=== PATIENT | male | born 1945 | race Caucasian/White ===

== ENCOUNTER 2020-07-23 11:36 | Inpatient (IN) | payer MEDICARE ==
[~2020-07-23] VITALS: Ht 177.8 cm; Wt 99.3 kg
[~2020-07-23 11:36] MED LIST: MEDROL4 MG PO; TESSALON PERLE100 MG PO; VENTOLIN HFA 66.7 GM INH; VIBRAMYCIN100 MG PO; ZESTRIL10 MG PO; ZOCOR80 MG PO
[2020-07-23 12:53] LABS: HEMOGLOBIN 15.1 gm/dl (14.0-17.5); RED BLOOD COUNT 4.81 M/UL (4.20-5.50); WHITE BLOOD COUNT 7.9 K/UL (4.5-11.0)
[2020-07-23 13:15] LABS: BUN/CREATININE RATIO 19 (0-10)
[2020-07-23] MEDS ORDERED: ASPIRIN EC81 MG PO (15:41)
[2020-07-23] MEDS ORDERED: VITAMIN D325 MCG PO (15:41)
[2020-07-24 06:50] LABS: HEMOGLOBIN 15.3 gm/dl (14.0-17.5); RED BLOOD COUNT 4.87 M/UL (4.20-5.50); WHITE BLOOD COUNT 9.3 K/UL (4.5-11.0)
[2020-07-25 06:01] LABS: HEMOGLOBIN 14.1 gm/dl (14.0-17.5); RED BLOOD COUNT 4.56 M/UL (4.20-5.50)
[2020-07-25 06:31] LABS: BUN/CREATININE RATIO 26 (0-10)
[2020-07-26 06:51] LABS: HEMOGLOBIN 13.1 gm/dl (14.0-17.5); RED BLOOD COUNT 4.21 M/UL (4.20-5.50); WHITE BLOOD COUNT 12.9 K/UL (4.5-11.0)
[2020-07-26 06:59] LABS: BUN/CREATININE RATIO 32 (0-10)
[2020-07-27 04:02] LABS: HEMOGLOBIN 12.9 gm/dl (14.0-17.5); RED BLOOD COUNT 4.18 M/UL (4.20-5.50); WHITE BLOOD COUNT 15.9 K/UL (4.5-11.0)
[2020-07-27 04:30] LABS: BUN/CREATININE RATIO 30 (0-10)
[2020-07-28 04:01] LABS: HEMOGLOBIN 13.4 gm/dl (14.0-17.5); RED BLOOD COUNT 4.3 M/UL (4.20-5.50); WHITE BLOOD COUNT 17.1 K/UL (4.5-11.0)
[2020-07-28 04:25] LABS: BUN/CREATININE RATIO 35 (0-10)
[2020-07-28 17:11] LABS: ORGANISM ID Not indicated. (.); SPECIMEN SOURCE Urine (.); STREPTOCOCCUS PNEUMONIAE AG Negative (Negative)
[2020-07-29 09:16] LABS: HEMOGLOBIN 14.1 gm/dl (14.0-17.5); RED BLOOD COUNT 4.57 M/UL (4.20-5.50); WHITE BLOOD COUNT 17.8 K/UL (4.5-11.0)
[2020-07-29 09:55] LABS: BUN/CREATININE RATIO 36 (0-10)
[2020-07-30 06:53] LABS: HEMOGLOBIN 14.7 gm/dl (14.0-17.5); RED BLOOD COUNT 4.71 M/UL (4.20-5.50)
[2020-07-30 07:14] LABS: BUN/CREATININE RATIO 38 (0-10)
[2020-07-31 05:11] LABS: HEMOGLOBIN 14.4 gm/dl (14.0-17.5); RED BLOOD COUNT 4.67 M/UL (4.20-5.50); WHITE BLOOD COUNT 12.9 K/UL (4.5-11.0)
[2020-07-31 06:00] LABS: BUN/CREATININE RATIO 38 (0-10)
[2020-08-01 05:13] LABS: BUN/CREATININE RATIO 43 (0-10)
[2020-08-02 05:25] LABS: HEMOGLOBIN 15.9 gm/dl (14.0-17.5); RED BLOOD COUNT 5.11 M/UL (4.20-5.50); WHITE BLOOD COUNT 15.3 K/UL (4.5-11.0)
[2020-08-03 02:57] LABS: HEMOGLOBIN 14.3 gm/dl (14.0-17.5); RED BLOOD COUNT 4.6 M/UL (4.20-5.50)
[2020-08-03 02:59] LABS: WHITE BLOOD COUNT 20.8 K/UL (4.5-11.0)
[2020-08-04 05:31] LABS: HEMOGLOBIN 13.3 gm/dl (14.0-17.5); RED BLOOD COUNT 4.41 M/UL (4.20-5.50); WHITE BLOOD COUNT 19.7 K/UL (4.5-11.0)
[2020-08-04 17:50] LABS: HEMOGLOBIN 12.8 gm/dl (14.0-17.5); RED BLOOD COUNT 4.14 M/UL (4.20-5.50); WHITE BLOOD COUNT 16.3 K/UL (4.5-11.0)
[2020-08-04 23:34] LABS: HEMOGLOBIN 12.4 gm/dl (14.0-17.5)
[2020-08-05 05:34] LABS: HEMOGLOBIN 11.8 gm/dl (14.0-17.5); RED BLOOD COUNT 3.88 M/UL (4.20-5.50); WHITE BLOOD COUNT 15.6 K/UL (4.5-11.0)
[2020-08-05 12:29] LABS: HEMOGLOBIN 11.5 gm/dl (14.0-17.5)
[2020-08-05 17:46] LABS: HEMOGLOBIN 11.1 gm/dl (14.0-17.5)
[2020-08-05 23:35] LABS: HEMOGLOBIN 10.6 gm/dl (14.0-17.5)
[2020-08-06 04:44] LABS: HEMOGLOBIN 10.1 gm/dl (14.0-17.5)
[2020-08-06 04:45] LABS: RED BLOOD COUNT 3.32 M/UL (4.20-5.50); WHITE BLOOD COUNT 10.8 K/UL (4.5-11.0)
--- NOTE | 2020-08-06 19:09 | NUR ---
PT WITH MULTIPLE EPISODES OF LOW O2 SATS. SATS DOWN TO 73% AT TIMES. DR GARCIA AWARE AND DR CEDILLO AWARE. PT REBOUNDS QUICKLY WITH PO SUCTIONING AND O2 INCREASE BRIEFLY.
[2020-08-07 05:23] LABS: HEMOGLOBIN 9.4 gm/dl (14.0-17.5); RED BLOOD COUNT 3.21 M/UL (4.20-5.50); WHITE BLOOD COUNT 11.4 K/UL (4.5-11.0)
--- NOTE | 2020-08-07 12:29 | NUR ---
PATIENT WAS PRONED AT 1200 ON 08/07/2020.
[2020-08-08 06:23] LABS: HEMOGLOBIN 10.8 gm/dl (14.0-17.5); RED BLOOD COUNT 3.5 M/UL (4.20-5.50)
[2020-08-08 06:27] LABS: WHITE BLOOD COUNT 15.9 K/UL (4.5-11.0)
[2020-08-09 05:50] LABS: HEMOGLOBIN 10.2 gm/dl (14.0-17.5); RED BLOOD COUNT 3.32 M/UL (4.20-5.50); WHITE BLOOD COUNT 15.7 K/UL (4.5-11.0)
[2020-08-09 06:36] LABS: BUN/CREATININE RATIO 36 (0-10)
[2020-08-10 04:20] LABS: HEMOGLOBIN 9.6 gm/dl (14.0-17.5); RED BLOOD COUNT 3.11 M/UL (4.20-5.50); WHITE BLOOD COUNT 13.8 K/UL (4.5-11.0)
[2020-08-10 05:00] LABS: BUN/CREATININE RATIO 39 (0-10)
[2020-08-11 05:35] LABS: HEMOGLOBIN 9.5 gm/dl (14.0-17.5); RED BLOOD COUNT 3.09 M/UL (4.20-5.50); WHITE BLOOD COUNT 12.7 K/UL (4.5-11.0)
[2020-08-12 04:38] LABS: HEMOGLOBIN 10.1 gm/dl (14.0-17.5); RED BLOOD COUNT 3.35 M/UL (4.20-5.50); WHITE BLOOD COUNT 10.1 K/UL (4.5-11.0)
[2020-08-13 05:56] LABS: HEMOGLOBIN 9.8 gm/dl (14.0-17.5); RED BLOOD COUNT 3.14 M/UL (4.20-5.50)
[2020-08-14 05:43] LABS: HEMOGLOBIN 9.9 gm/dl (14.0-17.5); RED BLOOD COUNT 3.19 M/UL (4.20-5.50); WHITE BLOOD COUNT 12.5 K/UL (4.5-11.0)
[2020-08-15 05:06] LABS: HEMOGLOBIN 9.5 gm/dl (14.0-17.5); RED BLOOD COUNT 3.17 M/UL (4.20-5.50); WHITE BLOOD COUNT 10.7 K/UL (4.5-11.0)
[2020-08-15 05:48] LABS: BUN/CREATININE RATIO 52 (0-10)
[2020-08-16 04:31] LABS: HEMOGLOBIN 9.6 gm/dl (14.0-17.5); RED BLOOD COUNT 3.15 M/UL (4.20-5.50); WHITE BLOOD COUNT 11.3 K/UL (4.5-11.0)
[2020-08-16 04:55] LABS: BUN/CREATININE RATIO 50 (0-10)
[2020-08-17 03:17] LABS: HEMOGLOBIN 9.5 gm/dl (14.0-17.5); RED BLOOD COUNT 3.14 M/UL (4.20-5.50); WHITE BLOOD COUNT 9.5 K/UL (4.5-11.0)
[2020-08-17 03:46] LABS: BUN/CREATININE RATIO 48 (0-10)
[2020-08-18 05:56] LABS: HEMOGLOBIN 10.4 gm/dl (14.0-17.5); RED BLOOD COUNT 3.5 M/UL (4.20-5.50); WHITE BLOOD COUNT 9.8 K/UL (4.5-11.0)
[2020-08-18 07:07] LABS: BUN/CREATININE RATIO 40 (0-10)
[2020-08-19 05:11] LABS: HEMOGLOBIN 9.9 gm/dl (14.0-17.5); RED BLOOD COUNT 3.27 M/UL (4.20-5.50); WHITE BLOOD COUNT 8.3 K/UL (4.5-11.0)
[2020-08-19 05:26] LABS: BUN/CREATININE RATIO 35 (0-10)
== END 2020-08-19 13:13 | disposition expired | DRG 870 ==
LOC: ER1 11:36 → CDU 15:02 → CCU 15:02 → M/S 20:16 → PROG CARE 07-24 08:20 → CCU 07-24 20:50
PROVIDERS: Internal Medicine; Internal Medicine Infectious Disease; Internal Medicine Nephrology; Internal Medicine Pulmonary Disease; Physician Assistant; ADMIT Family Medicine
PROC: 5A09457 Assistance with Respiratory Ventilation, 24-96 Consecutive Hours, Continuous Positive Airway Pressure (ICD-10-PCS; 2020-07-23)
PROC: XW033E5 Introduction of Remdesivir Anti-infective into Peripheral Vein, Percutaneous Approach, New Technology Group 5 (ICD-10-PCS; 2020-07-23)
PROC: XW13325 Transfusion of Convalescent Plasma (Nonautologous) into Peripheral Vein, Percutaneous Approach, New Technology Group 5 (ICD-10-PCS; 2020-07-24)
PROC: 0BH17EZ Insertion of Endotracheal Airway into Trachea, Via Natural or Artificial Opening (ICD-10-PCS; principal; 2020-08-01)
PROC: 5A1955Z Respiratory Ventilation, Greater than 96 Consecutive Hours (ICD-10-PCS; 2020-08-01)
PROC: 05HN33Z Insertion of Infusion Device into Left Internal Jugular Vein, Percutaneous Approach (ICD-10-PCS; 2020-08-01)
PROC: B544ZZA Ultrasonography of Left Jugular Veins, Guidance (ICD-10-PCS; 2020-08-01)
PROC: 03HY32Z Insertion of Monitoring Device into Upper Artery, Percutaneous Approach (ICD-10-PCS; 2020-08-01)
PROC: 4A133B1 Monitoring of Arterial Pressure, Peripheral, Percutaneous Approach (ICD-10-PCS; 2020-08-01)
PROC: 4A133J1 Monitoring of Arterial Pulse, Peripheral, Percutaneous Approach (ICD-10-PCS; 2020-08-01)
PROC: 3E0G76Z Introduction of Nutritional Substance into Upper GI, Via Natural or Artificial Opening (ICD-10-PCS; 2020-08-01)
PROC: 0DJ08ZZ Inspection of Upper Intestinal Tract, Via Natural or Artificial Opening Endoscopic (ICD-10-PCS; 2020-08-05)
DX: A41.89 Other specified sepsis (principal); U07.1 COVID-19; J12.89 Other viral pneumonia; J80 Acute respiratory distress syndrome; N17.0 Acute kidney failure with tubular necrosis; Z66 Do not resuscitate; Z51.5 Encounter for palliative care; R65.21 Severe sepsis with septic shock; J15.9 Unspecified bacterial pneumonia; I47.2 Ventricular tachycardia; E87.2 Acidosis; D62 Acute posthemorrhagic anemia; E87.0 Hyperosmolality and hypernatremia; E87.5 Hyperkalemia; G72.89 Other specified myopathies; I10 Essential (primary) hypertension; E78.5 Hyperlipidemia, unspecified; R00.1 Bradycardia, unspecified; E88.09 Other disorders of plasma-protein metabolism, not elsewhere classified; R74.01 Elevation of levels of liver transaminase levels; R04.0 Epistaxis; T38.0X5A Adverse effect of glucocorticoids and synthetic analogues, initial encounter; Z90.49 Acquired absence of other specified parts of digestive tract; Z79.82 Long term (current) use of aspirin; Z79.899 Other long term (current) drug therapy; E11.65 Type 2 diabetes mellitus with hyperglycemia; B95.2 Enterococcus as the cause of diseases classified elsewhere; E87.70 Fluid overload, unspecified
CPT/HCPCS: 31500; 36415; 36600; 71045; 74018; 80048; 80053; 80202; 81001; 82550; 82553; 82728; 82803; 82962; 83605; 83615; 83735; 83874; 83880; 84100; 84132; 84478; 84484; 85014; 85018; 85025; 85027; 85379; 85384; 85610; 85730; 86140; 86850; 86900; 86901; 86920; 86927; 87040; 87070; 87077; 87081; 87186; 87205; 87278; 87899; 90471; 93005; 94002; 94003; 94640; 94660; 94760; 96365; 96366; 96367; 96375; 99285; A6212; C9113; J0153; J0330; J0456; J0696; J1100; J1120; J1205; J1644; J1650; J1940; J2185; J2250; J2704; J2920; J2930; J3010; J3370; J7030; J7050; J7070; U0002